=== PATIENT | male | born 1995 | race American Indian/Alaskan Native ===

== ENCOUNTER 2018-06-16 01:41 | Emergency (ER) | payer SELFPAY ==
[2018-06-16] MEDS ORDERED: TYLENOL PO ONE (01:50)
[2018-06-16] MEDS ORDERED: TYLENOL ONE (01:52)
[2018-06-16] MEDS ORDERED: LIDOCAINE VISCOUS 2% PO ONE (02:10)
[2018-06-16] MEDS ORDERED: TORADOL IV ONE (02:10)
[2018-06-16] MEDS ORDERED: NACL 0.9% 1000 ML 1,000 ML IV ONE (02:10)
[2018-06-16] MEDS ORDERED: DECADRON IV ONE (02:10)
--- NOTE | 2018-06-16 02:11 | Emergency Department Report ---
ED General Adult HPI - General Chief complaint: Fever Stated complaint: FEVER BODY ACHE SORE THROAT Time Seen by Provider: 06/16/18 02:05 Source: patient, RN notes reviewed Mode of arrival: Ambulatory Limitations: No Limitations - History of Present Illness Initial comments: This is a 23-year-old gentleman who is known to this provider previously. He d oes not have a local primary care doctor. He denies current medical conditions chronically. He presents to the emergency room with sore throat, body aches, runny nose, cough, lower back pain 2 days. No sick contacts. No recent travel. No recent antibiotic use. No recent sexual partners in the past 6 weeks. Symptoms constant for the past 36-48 hours. They worsened with palpation, decreased with rest. They do not radiate anywhere. He denies irritative, obstructive urinary symptoms, dysuria, dyschezia, and IV drug abuse. -: Gradual, days(s) Location: head, mouth, back, left, right, upper extremity, lower extremity Severity scale (0 -10): 8 Quality: other Consistency: other Improves with: other Associated Symptoms: cough, fever/chills, headaches, loss of appetite, malaise, weakness. denies: confusion, chest pain, diaphoresis, nausea/vomiting, rash, seizure, shortness of breath, syncope - Related Data Previous Rx's Medication Instructions Recorded Last Taken Type Acetaminophen [Tylenol Arthritis] 650 mg PO Q6HR PRN #30 tablet.er 06/16/18 Unknown Rx Ibuprofen [Motrin] 600 mg PO Q8H PRN #30 tablet 06/16/18 Unknown Rx Ondansetron [Zofran Odt] 4 mg PO Q8HR PRN #20 tab.rapdis 06/16/18 Unknown Rx Oseltamivir Phosphate [Tamiflu] 75 mg PO BID #10 capsule 06/16/18 Unknown Rx Allergies Allergy/AdvReac Type Severity Reaction Status Date / Time No Known Allergies Allergy Unverified 06/16/18 01:46 ED Review of Systems ROS: Stated complaint: FEVER BODY ACHE SORE THROAT Other details as noted in HPI Constitutional: fever, malaise Eyes: denies: vision change ENT: congestion Respiratory: cough Cardiovascular: denies: chest pain Gastrointestinal: denies: nausea Genitourinary: denies: as per HPI, dysuria Musculoskeletal: back pain, arthralgia, myalgia Skin: denies: lesions Neurological: weakness Psychiatric: denies: anxiety ED Past Medical Hx - Past Medical History Previous Medical History?: No - Surgical History Past Surgical History?: No - Social History Smoking Status: Former Smoker Substance Use Type: Alcohol, Marijuana - Medications Home Medications: Home Medications Medication Instructions Recorded Confirmed Last Taken Type Acetaminophen [Tylenol Arthritis] 650 mg PO Q6HR PRN #30 tablet.er 06/16/18 Unknown Rx Ibuprofen [Motrin] 600 mg PO Q8H PRN #30 tablet 06/16/18 Unknown Rx Ondansetron [Zofran Odt] 4 mg PO Q8HR PRN #20 tab.rapdis 06/16/18 Unknown Rx Oseltamivir Phosphate [Tamiflu] 75 mg PO BID #10 capsule 06/16/18 Unknown Rx ED Physical Exam - General Limitations: No Limitations General appearance: alert, in no apparent distress - Head Head exam: Present: atraumatic, normocephalic - Eye Eye exam: Present: normal appearance, EOMI. Absent: nystagmus - ENT ENT exam: Present: mucous membranes dry, TM's normal bilaterally, normal e xternal ear exam, other (white exudates noted on oropharynx). Absent: normal orophraynx - Neck Neck exam: Present: normal inspection, full ROM, lymphadenopathy. Absent: tenderness, meningismus - Respiratory Respiratory exam: Present: normal lung sounds bilaterally. Absent: respiratory distress - Cardiovascular Cardiovascular Exam: Present: normal rhythm, tachycardia, normal heart sounds. Absent: systolic murmur, diastolic murmur, rubs, gallop - GI/Abdominal GI/Abdominal exam: Present: soft. Absent: distended, tenderness, guarding, rebound, rigid, pulsatile mass - Rectal Rectal exam: Present: deferred - Extremities Exam Extremities exam: Present: normal inspection, full ROM, other (2+ pulses noted in the bilateral upper, lower extremities. Compartments soft. No long bony tenderness. The pelvis is stable.). Absent: pedal edema, joint swelling, calf tenderness - Back Exam Back exam: Present: normal inspection, full ROM. Absent: tenderness, CVA tenderness (R), paraspinal tenderness, vertebral tenderness - Neurological Exam Neurological exam: Present: alert, oriented X3, CN II-XII intact, normal gait, other (Extraocular movements intact. Tongue midline. No facial droop. Facial sensation intact to light touch in the V1, V2, V3 distribution bilaterally. 5 and 5 strength in 4 extremities.. Sensation is intact to light touch in 4 extremities.). Absent: motor sensory deficit - Psychiatric Psychiatric exam: Present: anxious - Skin Skin exam: Present: warm, dry, intact, normal color. Absent: rash ED Course Vital Signs 06/16/18 06/16/18 06/16/18 01:55 02:00 02:30 Temperature 102 F H Pulse Rate 112 H 79 Respiratory 18 18 16 Rate Blood Pressure 130/68 Blood Pressure 127/74 [Left] O2 Sat by Pulse 97 Oximetry 06/16/18 02:46 Temperature Pulse Rate Respiratory 16 Rate Blood Pressure Blood Pressure [Left] O2 Sat by Pulse 98 Oximetry - Reevaluation(s) Reevaluation #1: 06/16/18 02:43 Differential diagnosis, including not limited to: Viremia, viral syndrome, pharyngitis, strep Assessment and plan: 23-year-old gentleman with fever, exudates, lymphadenopathy, suspect viral versus strep pharyngitis. He is febrile and relatively tachycardic. We will treat his symptoms, obtain rapid strep, and reassess. Patient is young, and immune competent, influenza also a possibility, we will treat supportively. Reevaluation #2: 06/16/18 04:34 Patient reassessed. Feels much improved. Strep screen is negative. Tachycardia resolved. Tolerating liquid feeds. Patient will be discharged with supportive medications, instructions to follow up with outpatient primary care. ED Medical Decision Making - Lab Data Vital Signs 06/16/18 06/16/18 01:55 02:00 Temperature 102 F H Pulse Rate 112 H Respiratory 18 18 Rate Blood Pressure 127/74 [Left] O2 Sat by Pulse 97 Oximetry Vital Signs 06/16/18 06/16/18 06/16/18 01:55 02:00 02:30 Temperature 102 F H Pulse Rate 112 H 79 Respiratory 18 18 16 Rate Blood Pressure 130/68 Blood Pressure 127/74 [Left] O2 Sat by Pulse 97 Oximetry 06/16/18 02:46 Temperature Pulse Rate Respiratory 16 Rate Blood Pressure Blood Pressure [Left] O2 Sat by Pulse 98 Oximetry Lab Results 06/16/18 Range/Units 02:45 Group A Strep Rapid Negative (Negative) Critical care attestation.: If time is entered above; I have spent that time in minutes in the direct care of this critically ill patient, excluding procedure time. ED Disposition Clinical Impression: Acute febrile illness Disposition: DC-01 TO HOME OR SELFCARE Is pt being admited?: No Does the pt Need Aspirin: No Condition: Stable Additional Instructions: Cultures were sent today, and results will be available next 3-5 days. Take the medications as needed/directed. Avoid consumption of alcohol. Avoid kissing and intimate contact with other people. Advance diet as tolerated. Follow up with your primary care doctor within the next 7 days. Have a primary care doctor contact the medical records department to obtain culture results. Return to the emergency room right away with new, worsening or different symptoms. Referrals: PRIMARY CARE [Primary Care Provider] - 3-5 Days [facility] [Provider Group] - 3-5 Days [facility] [Provider Group] - 3-5 Days
[2018-06-16 04:35] VITALS: BP 111/61
== END 2018-06-16 04:51 | disposition home or self-care (01) ==
LOC: ED 01:41
DX: R05 Cough (principal); R50.9 Fever, unspecified; R09.89 Other specified symptoms and signs involving the circulatory and respiratory systems; M54.5 Low back pain; J02.9 Acute pharyngitis, unspecified; F12.10 Cannabis abuse, uncomplicated; Z87.891 Personal history of nicotine dependence
CPT/HCPCS: 87116; 87430; 96361; 96374; 96375; 99283; J1100; J1885; J7030